=== PATIENT | male | born 1990 | race Two or more races ===

== ENCOUNTER 2025-03-03 00:10 | Emergency (ER) | payer OTHER, SELFPAY ==
[2025-03-03 00:14] VITALS: BP 146/74; PULSE 134; RESP 20; TEMP 37.1; O2SAT 95
[2025-03-03 00:16] VITALS: BMI 33.0
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
== END 2025-03-03 01:34 ==
LOC: SERX 01:31
PROVIDERS: Emergency Provider Emergency Medicine
DX: Z02.89 Encounter for other administrative examinations (principal); M54.50 Low back pain, unspecified; Y35.813A Legal intervention involving manhandling, suspect injured, initial encounter
CPT/HCPCS: 72100; 99282